=== PATIENT | male | born 1945 | race Caucasian/White ===

== ENCOUNTER 2019-10-18 07:37 | Observation (INO) ==
[2019-10-18] MEDS ORDERED: Ondansetron ODT 4 MG TAB.RAPDIS SL PRN (11:23)
[2019-10-18] MEDS ORDERED: Nitroglycerin 0.4 MG TAB.SUBL SL PRN (11:26)
[2019-10-18 12:09] LABS: Chol/HDL Ratio 4.6 (0-4.9)
[2019-10-18] MEDS ORDERED: FLUTICASONE PROPIONATE 50 MCG IH SCH (13:47)
[2019-10-18] MEDS: Azithromycin 250 MG TABLET PO SCH (15:59)
[2019-10-18] MEDS: carvediloL 25 MG TABLET PO SCH (16:00)
[2019-10-18 20:35] LABS: Adenovirus Not Detected (Not Detect); Bordetella Pertussis Not Detected (Not Detect); Chlamydophila pneumoniae Not Detected (Not Detect); Coronavirus 229E Not Detected (Not Detect); Coronavirus HKU1 Not Detected (Not Detect); Coronavirus NL63 Not Detected (Not Detect); Coronavirus OC43 Not Detected (Not Detect); Human Metapneumovirus Not Detected (Not Detect); Human Rhinovirus/Enterovirus DETECTED (Not Detect); Influenza A Subtype 2009 H1 Not Detected (Not Detect); Influenza B Not Detected (Not Detect); Mycoplasma pneumoniae Not Detected (Not Detect); Parainfluenza Virus 1 Not Detected (Not Detect); Parainfluenza Virus 2 Not Detected (Not Detect); Parainfluenza Virus 3 Not Detected (Not Detect); Parainfluenza Virus 4 Not Detected (Not Detect); Respiratory Syncytial Virus Not Detected (Not Detect)
[2019-10-19 02:31] LABS: Hematocrit 34.5 % (37.5-50.1)
[2019-10-19 02:32] LABS: Hemoglobin 11.5 g/dL (12.9-16.9); Mean Corpuscular HGB Conc 33.3 g/dL (31.6-35.5); Mean Corpuscular Hemoglobin 35.2 pg (28.0-33.3); Mean Corpuscular Volume 105.5 fL (83.0-100.0); Mean Platelet Volume 10.5 fL (9.4-12.4); Red Blood Count 3.27 M/mcL (4.19-5.50); Red Cell Distribution Width 13.2 % (11.5-14.5)
[2019-10-19 02:37] LABS: Platelet Count 93 K/mcL (140-400)
[2019-10-19 02:39] LABS: BUN/Creatinine Ratio 18 (6-26); Blood Urea Nitrogen 20 mg/dL (8-23); Calcium 8.9 mg/dL (8.6-10.3); Carbon Dioxide 28 mEq/L (23-29); Chloride 103 mEq/L (98-107); Glucose 93 mg/dL (70-105); Osmolality,Calculated 294 (280-300); Sodium 141 mEq/L (136-145); White Blood Count 39.8 K/mcL (4.3-11.1); eGFR For African Americans > 60 (> 60); eGFR For Non-African Americans > 60 (> 60)
[2019-10-19 03:58] LABS: Basophils # 0.4 K/mcL (0.0-0.2); Lymphocytes # 35.4 K/mcL (0.6-4.6); Monocytes # 0.4 K/mcL (0.0-1.3); Neutrophils # 3.2 K/mcL (1.6-8.9); Platelet Estimate Decreased (Normal); Reactive Lymphocytes Present (Not Present); Smudge Cells Present (Not Present)
[2019-10-19] MEDS ORDERED: Loratadine 10 MG TABLET PO SCH (09:00)
[2019-10-19] MEDS ORDERED: Aspirin Enteric Coated 81 MG Tablet PO SCH (09:00)
[2019-10-19] MEDS ORDERED: Fluticasone Propionate Nasal 50 MCG/SPRAY BOTTLE NS SCH (09:00)
[2019-10-19] MEDS: Azithromycin 250 MG TABLET PO SCH (09:25)
[2019-10-19] MEDS: carvediloL 25 MG TABLET PO SCH (09:26)
[2019-10-19 11:25] VITALS: BP 136/62
== END 2019-10-19 13:18 | disposition home or self-care (01) ==
LOC: 2ANU
PROVIDERS: ADMIT Internal Medicine; ATTEND Internal Medicine

== ENCOUNTER 2021-08-21 17:10 | Inpatient (IN) ==
[2021-08-22] MEDS ORDERED: Naloxone 0.4 MG/ML INJ IVP PRN (00:07)
[2021-08-22 01:15] LABS: Magnesium 2.1 mg/dL (1.6-2.6); Phosphorous 3.2 mg/dL (2.7-4.5)
[2021-08-22 01:17] LABS: Iron 46 mcg/dL (65-175)
[2021-08-22 01:35] LABS: Ferritin 1370 ng/mL (20-250)
[2021-08-22] MEDS: Aspirin 81 MG TAB.CHEW PO SCH ×2 (01:37→09:01)
[2021-08-22 01:39] LABS: Folate 9.5 ng/mL (3.0-16.0)
[2021-08-22] MEDS ORDERED: GuaiFENesin Liq 200 MG/10 ML UDC PO PRN (14:43)
[2021-08-22] MEDS ORDERED: carvediloL 6.25 MG TABLET PO SCH (17:00)
[2021-08-22] MEDS ORDERED: Perflutren Lipid Microsphere 1.3 ML in 0.9 % Sodium Chloride 8.7 ML IVP PRN (19:26)
[2021-08-22] MEDS: Mirtazapine 15 MG TABLET PO SCH (20:01)
[2021-08-22] MEDS: Acyclovir 200 MG CAPSULE PO SCH (21:00)
[2021-08-22] MEDS ORDERED: *HR* LORazepam 2 MG/ML VIAL IVP ONE (23:08)
[2021-08-22] MEDS ORDERED: Haloperidol Lactate 5 MG/ML VIAL IM ONE (23:08)
[2021-08-22] MEDS ORDERED: *HR* LORazepam 2 MG/ML VIAL IVP PRN (23:08)
[2021-08-22] MEDS ORDERED: *HR* LORazepam 2 MG/ML VIAL IM STA (23:10)
[2021-08-23] MEDS: 0.9 % Sodium Chloride 1,000 ML IVC SCH ×2 (03:00→20:02)
[2021-08-23] MEDS: Acyclovir 200 MG CAPSULE PO SCH ×2 (09:03→19:58)
[2021-08-23] MEDS: Fluconazole 100 MG TABLET PO SCH (09:04)
[2021-08-23] MEDS: Aspirin 81 MG TAB.CHEW PO SCH (09:04)
[2021-08-23 09:07] LABS: Immature Granulocytes % 0.2 % (0-4)
[2021-08-23 09:09] LABS: Basophils % 0.2 %; Eosinophils # 0.1 K/mcL (0.0-0.6); Eosinophils % 1.2 %; Hematocrit 31.4 % (37.5-50.1); Hemoglobin 10.2 g/dL (12.9-16.9); Immature Platelets 9.4 % (1.1-6.1); Lymphocytes # 1.3 K/mcL (0.6-4.6); Lymphocytes % 25.5 %; Mean Corpuscular HGB Conc 32.5 g/dL (31.6-35.5); Mean Corpuscular Hemoglobin 33.7 pg (28.0-33.3); Mean Corpuscular Volume 103.6 fL (83.0-100.0); Mean Platelet Volume 11.2 fL (9.4-12.4); Monocytes # 0.4 K/mcL (0.0-1.3); Monocytes % 7.2 %; Neutrophils # 3.4 K/mcL (1.6-8.9); Platelet Count 144 K/mcL (140-400); Red Blood Count 3.03 M/mcL (4.19-5.50); Red Cell Distribution Width 12.6 % (11.5-14.5); Segmented Neutrophils % 65.7 %; White Blood Count 5.1 K/mcL (4.3-11.1)
[2021-08-23] MEDS: Multivit/Ca/Min/Fe/FA 1 TAB TABLET PO SCH (09:13)
[2021-08-23 09:33] LABS: Alanine Aminotransferase 70 Units/L (7-52); Albumin 3.2 g/dL (3.5-5.7); Alkaline Phosphatase 71 Units/L (34-104); Aspartate Amino Transferase 42 Units/L (13-39); BUN/Creatinine Ratio 23 (6-26); Bilirubin,Total 0.5 mg/dL (0.3-1.0); Blood Urea Nitrogen 22 mg/dL (8-23); Calcium 9.1 mg/dL (8.6-10.3); Carbon Dioxide 26 mEq/L (23-29); Chloride 102 mEq/L (98-107); Globulin 3.2 g/dL (2.4-3.5); Glucose 103 mg/dL (70-105); Osmolality,Calculated 286 (280-300); Potassium 5.1 mEq/L (3.5-5.1); Sodium 136 mEq/L (136-145); Total Protein 6.4 g/dL (6.4-8.9); eGFR For African Americans > 60 (> 60); eGFR For Non-African Americans > 60 (> 60)
[2021-08-23] MEDS: Thiamine (B-1) 100 MG in 0.9 % Sodium Chloride 50 ML IVPB SCH (15:23)
[2021-08-23] MEDS ORDERED: *HR* LORazepam 2 MG/ML VIAL IVP PRN (15:40)
[2021-08-23] MEDS: Mirtazapine 15 MG TABLET PO SCH (19:56)
[2021-08-24 06:21] LABS: Hematocrit 32.5 % (37.5-50.1); Hemoglobin 10.3 g/dL (12.9-16.9); Mean Corpuscular HGB Conc 31.7 g/dL (31.6-35.5); Mean Corpuscular Hemoglobin 33.2 pg (28.0-33.3); Mean Corpuscular Volume 104.8 fL (83.0-100.0); Mean Platelet Volume 11.3 fL (9.4-12.4); Platelet Count 128 K/mcL (140-400); Red Cell Distribution Width 12.7 % (11.5-14.5); White Blood Count 4.5 K/mcL (4.3-11.1)
[2021-08-24 06:52] LABS: BUN/Creatinine Ratio 21 (6-26); Blood Urea Nitrogen 21 mg/dL (8-23); Calcium 9.1 mg/dL (8.6-10.3); Carbon Dioxide 23 mEq/L (23-29); Chloride 104 mEq/L (98-107); Glucose 93 mg/dL (70-105); Osmolality,Calculated 287 (280-300); Potassium 4.7 mEq/L (3.5-5.1); Sodium 137 mEq/L (136-145); eGFR For African Americans > 60 (> 60); eGFR For Non-African Americans > 60 (> 60)
[2021-08-24] MEDS: Acyclovir 200 MG CAPSULE PO SCH ×2 (07:57→21:42)
[2021-08-24] MEDS: Aspirin 81 MG TAB.CHEW PO SCH (07:57)
[2021-08-24] MEDS: Sulfamethoxazole/Trimeth DS 1 EACH TABLET PO SCH (07:58)
[2021-08-24] MEDS: Fluconazole 100 MG TABLET PO SCH (07:58)
[2021-08-24] MEDS: Multivit/Ca/Min/Fe/FA 1 TAB TABLET PO SCH (07:58)
[2021-08-24] MEDS: Thiamine (B-1) 100 MG in 0.9 % Sodium Chloride 50 ML IVPB SCH (09:28)
[2021-08-24] MEDS ORDERED: Isovue-370 500 ML BOTTLE IVP ONE (11:57)
[2021-08-24] MEDS: Mirtazapine 15 MG TABLET PO SCH (21:42)
[2021-08-24] MEDS: 0.9 % Sodium Chloride 1,000 ML IVC SCH (21:55)
[2021-08-25 03:25] LABS: Hematocrit 31.9 % (37.5-50.1); Hemoglobin 10.5 g/dL (12.9-16.9); Mean Corpuscular HGB Conc 32.9 g/dL (31.6-35.5); Mean Corpuscular Volume 103.2 fL (83.0-100.0); Mean Platelet Volume 11.1 fL (9.4-12.4); Platelet Count 143 K/mcL (140-400); Red Blood Count 3.09 M/mcL (4.19-5.50); Red Cell Distribution Width 12.9 % (11.5-14.5); White Blood Count 4.7 K/mcL (4.3-11.1)
[2021-08-25 03:40] LABS: BUN/Creatinine Ratio 20 (6-26); Blood Urea Nitrogen 21 mg/dL (8-23); Carbon Dioxide 24 mEq/L (23-29); Chloride 105 mEq/L (98-107); Glucose 88 mg/dL (70-105); Osmolality,Calculated 286 (280-300); Potassium 4.3 mEq/L (3.5-5.1); Sodium 137 mEq/L (136-145); eGFR For African Americans > 60 (> 60); eGFR For Non-African Americans > 60 (> 60)
[2021-08-25] MEDS: Acyclovir 200 MG CAPSULE PO SCH ×2 (07:13→19:56)
[2021-08-25] MEDS: Aspirin 81 MG TAB.CHEW PO SCH (07:13)
[2021-08-25] MEDS: Thiamine (B-1) 100 MG in 0.9 % Sodium Chloride 50 ML IVPB SCH (07:13)
[2021-08-25] MEDS: Fluconazole 100 MG TABLET PO SCH (07:13)
[2021-08-25] MEDS: Multivit/Ca/Min/Fe/FA 1 TAB TABLET PO SCH (07:13)
[2021-08-25] MEDS ORDERED: Mirtazapine 15 MG TABLET PO ONE (12:06)
[2021-08-25] MEDS ORDERED: *HR* Heparin 5,000 UNIT/ML VIAL IVP ONE (13:34)
[2021-08-25] MEDS ORDERED: *HR* Heparin 5,000 UNIT/ML VIAL IVP PRN (13:34)
[2021-08-25 14:25] LABS: Hematocrit 32.9 % (37.5-50.1); Hemoglobin 10.4 g/dL (12.9-16.9); Mean Corpuscular HGB Conc 31.6 g/dL (31.6-35.5); Mean Corpuscular Hemoglobin 33.2 pg (28.0-33.3); Mean Corpuscular Volume 105.1 fL (83.0-100.0); Platelet Count 145 K/mcL (140-400); Red Blood Count 3.13 M/mcL (4.19-5.50); White Blood Count 4.8 K/mcL (4.3-11.1)
[2021-08-25 14:31] LABS: INR 1.3
[2021-08-25 14:34] LABS: Heparin anti-factor XA UFH < 0.04 IU/mL (0.30-0.70)
[2021-08-25] MEDS: Heparin 25,000 UNIT/250 ML 25,000 UNIT/250 ML IV.SOLN IVC SCH (15:49)
[2021-08-25] MEDS: 0.9 % Sodium Chloride 1,000 ML IVC SCH (18:45)
[2021-08-25] MEDS: Mirtazapine 15 MG TABLET PO SCH (19:56)
[2021-08-25] MEDS: Melatonin 3 MG TABLET PO PRN (19:56)
[2021-08-26 04:44] LABS: Hematocrit 28.7 % (37.5-50.1); Hemoglobin 9.4 g/dL (12.9-16.9); Mean Corpuscular HGB Conc 32.8 g/dL (31.6-35.5); Mean Corpuscular Hemoglobin 34.1 pg (28.0-33.3); Mean Platelet Volume 10.6 fL (9.4-12.4); Platelet Count 131 K/mcL (140-400); Red Blood Count 2.76 M/mcL (4.19-5.50); Red Cell Distribution Width 13.2 % (11.5-14.5); White Blood Count 3.4 K/mcL (4.3-11.1)
[2021-08-26 04:58] LABS: BUN/Creatinine Ratio 19 (6-26); Blood Urea Nitrogen 17 mg/dL (8-23); Calcium 8.6 mg/dL (8.6-10.3); Carbon Dioxide 26 mEq/L (23-29); Chloride 107 mEq/L (98-107); Glucose 93 mg/dL (70-105); Osmolality,Calculated 289 (280-300); Potassium 4.1 mEq/L (3.5-5.1); Sodium 139 mEq/L (136-145); eGFR For African Americans > 60 (> 60); eGFR For Non-African Americans > 60 (> 60)
[2021-08-26] MEDS: *HR* Heparin 5,000 UNIT/ML VIAL IVP PRN (06:04)
[2021-08-26 07:11] LABS: % Iron Saturation 35 % (20-55); Transferrin 95 mg/dL (200-400)
[2021-08-26] MEDS: Acyclovir 200 MG CAPSULE PO SCH ×2 (07:13→20:56)
[2021-08-26] MEDS: Aspirin 81 MG TAB.CHEW PO SCH (07:13)
[2021-08-26] MEDS: Fluconazole 100 MG TABLET PO SCH (07:13)
[2021-08-26] MEDS: Sulfamethoxazole/Trimeth DS 1 EACH TABLET PO SCH (07:13)
[2021-08-26] MEDS: Thiamine (B-1) 100 MG in 0.9 % Sodium Chloride 50 ML IVPB SCH (07:14)
[2021-08-26] MEDS: Multivit/Ca/Min/Fe/FA 1 TAB TABLET PO SCH (07:14)
[2021-08-26] MEDS: Heparin 25,000 UNIT/250 ML 25,000 UNIT/250 ML IV.SOLN IVC SCH (14:34)
[2021-08-26] MEDS: 0.9 % Sodium Chloride 1,000 ML IVC SCH (16:14)
[2021-08-26] MEDS: Mirtazapine 15 MG TABLET PO SCH (20:56)
[2021-08-26] MEDS: Melatonin 3 MG TABLET PO PRN (20:56)
[2021-08-27 07:14] LABS: Hematocrit 31.3 % (37.5-50.1); Mean Corpuscular HGB Conc 31.9 g/dL (31.6-35.5); Mean Corpuscular Hemoglobin 33.4 pg (28.0-33.3); Mean Corpuscular Volume 104.7 fL (83.0-100.0); Mean Platelet Volume 10.6 fL (9.4-12.4); Platelet Count 135 K/mcL (140-400); Red Blood Count 2.99 M/mcL (4.19-5.50); Red Cell Distribution Width 13.4 % (11.5-14.5); White Blood Count 3.3 K/mcL (4.3-11.1)
[2021-08-27] MEDS: Aspirin 81 MG TAB.CHEW PO SCH (08:24)
[2021-08-27] MEDS: Fluconazole 100 MG TABLET PO SCH (08:24)
[2021-08-27] MEDS: Acyclovir 200 MG CAPSULE PO SCH ×2 (08:24→20:01)
[2021-08-27] MEDS: Multivit/Ca/Min/Fe/FA 1 TAB TABLET PO SCH (08:24)
[2021-08-27] MEDS: Thiamine (B-1) 100 MG in 0.9 % Sodium Chloride 50 ML IVPB SCH (10:56)
[2021-08-27] MEDS: Heparin 25,000 UNIT/250 ML 25,000 UNIT/250 ML IV.SOLN IVC SCH (13:01)
[2021-08-27] MEDS: 0.9 % Sodium Chloride 1,000 ML IVC SCH (20:00)
[2021-08-27] MEDS: Melatonin 3 MG TABLET PO PRN (20:01)
[2021-08-27] MEDS: Mirtazapine 15 MG TABLET PO SCH (20:02)
[2021-08-27] MEDS: *HR* Heparin 5,000 UNIT/ML VIAL IVP PRN (20:10)
[2021-08-28 03:07] LABS: Basophils % 0.3 %; Eosinophils # 0.1 K/mcL (0.0-0.6); Eosinophils % 2.7 %; Hematocrit 30.5 % (37.5-50.1); Hemoglobin 9.6 g/dL (12.9-16.9); Immature Granulocytes % 0.3 % (0-4); Lymphocytes # 1.3 K/mcL (0.6-4.6); Lymphocytes % 42.9 %; Mean Corpuscular HGB Conc 31.5 g/dL (31.6-35.5); Mean Corpuscular Hemoglobin 33.1 pg (28.0-33.3); Mean Corpuscular Volume 105.2 fL (83.0-100.0); Mean Platelet Volume 10.4 fL (9.4-12.4); Monocytes # 0.4 K/mcL (0.0-1.3); Monocytes % 12.8 %; Neutrophils # 1.2 K/mcL (1.6-8.9); Platelet Count 139 K/mcL (140-400); Red Cell Distribution Width 13.7 % (11.5-14.5)
[2021-08-28 03:18] LABS: Heparin anti-factor XA UFH 0.49 IU/mL (0.30-0.70); INR 1.2; Prothrombin Time 13.3 Seconds (9.4-12.1)
[2021-08-28] MEDS: Sulfamethoxazole/Trimeth DS 1 EACH TABLET PO SCH (08:30)
[2021-08-28] MEDS: Fluconazole 100 MG TABLET PO SCH (08:31)
[2021-08-28] MEDS: Multivit/Ca/Min/Fe/FA 1 TAB TABLET PO SCH (08:31)
[2021-08-28] MEDS: Aspirin 81 MG TAB.CHEW PO SCH (08:31)
[2021-08-28] MEDS: Acyclovir 200 MG CAPSULE PO SCH (08:31)
[2021-08-28] MEDS: 0.9 % Sodium Chloride 1,000 ML IVC SCH (08:32)
[2021-08-28] MEDS: Thiamine (B-1) 100 MG in 0.9 % Sodium Chloride 50 ML IVPB SCH (08:39)
[2021-08-28] MEDS: Heparin 25,000 UNIT/250 ML 25,000 UNIT/250 ML IV.SOLN IVC SCH (08:44)
[2021-08-28 12:39] VITALS: BP 115/63; PULSE 75; TEMP 98.4; O2SAT 95
[2021-08-28] MEDS ORDERED: E-Z-HD (BARIUM SULF) SUSPENSION PO ONE (15:58)
[2021-08-28] MEDS ORDERED: E-Z-PAQUE (BARIUM SULF) SUSP 1 BOTTLE PO ONE (15:58)
[2021-08-28 16:43] LABS: Influenza A PCR Negative (Negative); Influenza B PCR Negative (Negative); Resp. Syncytial Virus PCR Negative (Negative)
[2021-08-28 16:48] LABS: SARS-CoV-2 by PCR (In House) Positive (Negative)
== END 2021-08-28 18:26 | disposition other institution (70) | DRG 64 ==
LOC: 3NENU → SUATTDRO 22:58
PROVIDERS: ADMIT Pharmacist; ATTEND Family Medicine